=== PATIENT | female | born 1995 | race Hispanic/Latino ===

== ENCOUNTER 2019-03-09 05:17 | Inpatient (IN) | payer OTHER ==
[~2019-03-09] VITALS: Ht 160 cm; Wt 65.8 kg
[2019-03-09] VITALS (16 sets, daily range): BP systolic 66–91; BP diastolic 25–57
[2019-03-09] MEDS ORDERED: MAGNESIUM 2GM PREMIX 50ML 50 ML IV ONE (05:23)
[2019-03-09] MEDS ORDERED: NALOXONE HCL 0.4 MG/1 ML ML ONE (05:27)
[2019-03-09 05:30] LABS: ABG BASE EXCESS -16.7 mmol/L (-2.0-3.0); ABG HCO3 17.1 mmol/L (21.0-28.0); ABG PCO2 84 mmHg (32-45)
[2019-03-09 05:38] LABS: BASOPHILS % (AUTO) 0.4 % (0.0-5.0); EOSINOPHILS % (AUTO) 1.9 % (0.0-8.0); HEMATOCRIT 39.6 % (36-48); LYMPHOCYTES % (AUTO) 57.4 % (21.0-51.0); MEAN CORPUSCULAR HGB CONC 32.7 g/dL (32.0-36.0); MEAN CORPUSCULAR VOLUME 101.1 fL (79-99); MONOCYTES % (AUTO) 5.9 % (3.0-13.0); NEUTROPHILS % (AUTO) 34.4 % (40.0-77.0); NUCLEATED RED BLOOD CELLS 0.1 % (0.0-0.19); PLATELET COUNT (AUTO) 368 K/uL (130-400); RED BLOOD CELL COUNT(AUTO) 3.92 MIL/uL (4.00-5.50); RED CELL DISTRIBUTION WIDTH 13.9 % (11.0-15.5); WHITE BLOOD COUNT (AUTO) 7.1 K/uL (4.8-10.8)
[2019-03-09 05:39] LABS: CARBON DIOXIDE 22 mmol/L (21-32); CHLORIDE 104 mmol/L (101-111); CREATININE 1.5 mg/dL (0.5-1.5); GLOMERULAR FILTR. RATE CALC 45 mL/min (>60); GLUCOSE,RANDOM 309 mg/dL (70-105); POTASSIUM 5.2 mmol/L (3.5-5.1); SODIUM SERUM 145 mmol/L (136-145); UREA NITROGEN, BLOOD 18 mg/dL (7-18)
[2019-03-09] MEDS ORDERED: SODIUM BICARB 50MEQ 50ML VIAL ONE ×5 (05:42→23:13)
[2019-03-09 05:44] LABS: ALANINE AMINOTRANSFERASE 46 U/L (12-78); ALBUMIN 3.7 g/dL (3.5-5.0); ASPARTATE AMINOTRANSFERASE 43 U/L (10-37); BILIRUBIN,TOTAL 0.2 mg/dL (0.2-1.0); TOTAL PROTEIN, SERUM 7.1 g/dL (6.0-8.3)
[2019-03-09 05:52] LABS: ACETAMINOPHEN < 1 mcg/mL (10-30); SALICYLATE < 2.8 mg/dL (2.8-20.0)
[2019-03-09 05:53] LABS: ALCOHOL, BLOOD 234 mg/dL (0-10)
[2019-03-09 06:17] LABS: APPEARANCE,URINE Clear (CLEAR); BILIRUBIN,URINE Negative (NEGATIVE); COLOR,URINE Yellow (YELLOW); GLUCOSE, URINE (UA) Negative (NEGATIVE); KETONES,URINE Negative (NEGATIVE); LEUKOCYTE ESTERASE ,URINE Negative (NEGATIVE); NITRATE,URINE Negative (NEGATIVE); OCCULT BLOOD,URINE Negative (NEGATIVE); PROTEIN,URINE Negative (NEGATIVE); UROBILINOGEN,URINE 0.2 mg/dL (0.2-1.0)
[2019-03-09 06:19] LABS: ABG BASE EXCESS -18.9 mmol/L (-2.0-3.0); ABG HCO3 12.5 mmol/L (21.0-28.0); ABG OXYGEN SATURATION 98.2 % (95.0-99.0); ABG PCO2 54 mmHg (32-45)
[2019-03-09 06:27] LABS: HCG,QUAL RESULT NEGATIVE (NEGATIVE)
[2019-03-09 06:30] LABS: AMPHET/METH SCREEN,URINE NEGATIVE (NEGATIVE); BARBITURATE SCREEN, URINE NEGATIVE (NEGATIVE); BENZODIAZEPINES SCREEN,URINE POSITIVE (NEGATIVE); CANNABINOID SCREEN,URINE NEGATIVE (NEGATIVE); COCAINE SCREEN,URINE POSITIVE (NEGATIVE); OPIATE SCREEN,URINE NEGATIVE (NEGATIVE); PHENCYCLIDINE SCREEN,URINE NEGATIVE (NEGATIVE)
[2019-03-09 07:08] LABS: CREATININE 1.2 mg/dL (0.5-1.5)
[2019-03-09 07:24] LABS: ACETONE,BLOOD NEGATIVE (NEGATIVE)
[2019-03-09 07:39] LABS: OCCULT BLOOD,GASTRIC FLUID POSITIVE (NEGATIVE)
[2019-03-09 09:05] LABS: ABG HCO3 11.5 mmol/L (21.0-28.0); ABG OXYGEN SATURATION 99.8 % (95.0-99.0); ABG PCO2 24 mmHg (32-45)
[2019-03-09] MEDS: LACTATED RINGERS 1000ML 1,000 ML IV SCH ×4 (09:15→23:11)
[2019-03-09] MEDS ORDERED: ONDANSETRON HCL 4 MG/2 ML VIAL IV PRN (09:15)
[2019-03-09] MEDS ORDERED: ACETAMINOPHEN 325 MG TAB PO PRN ×2 (09:15)
[2019-03-09] MEDS ORDERED: HYDRALAZINE HCL 20 MG/ML VIAL IV PRN (09:15)
[2019-03-09] MEDS ORDERED: NOREPINEPHRINE BITARTRATE 1 MG/1 ML ML IV ONE ×4 (09:26→15:39)
[2019-03-09 09:46] LABS: CREATININE 1.1 mg/dL (0.5-1.5); POTASSIUM 3.9 mmol/L (3.5-5.1)
[2019-03-09] MEDS: FOLIC ACID IV SCH (10:00)
[2019-03-09] MEDS: M V I IV SCH (10:00)
[2019-03-09] MEDS: [UNRECOGNIZED DRUG - OTHER] IV SCH (10:00)
[2019-03-09] MEDS: THIAMINE HCL IV SCH (10:00)
[2019-03-09] MEDS ORDERED: LACTATED RINGERS 1000ML 1,000 ML IV ONE (10:22)
[2019-03-09] MEDS ORDERED: DOPAMINE 800MG/D5 250ML 250 ML IV ONE (10:25)
[2019-03-09] MEDS ORDERED: LEVETIRACETAM 500 MG in SODIUM CHLORIDE 0.9% 100 ML IV SCH (10:30)
[2019-03-09] MEDS ORDERED: LEVETIRACETAM 500 MG/5 ML SD VIAL IV ONE (11:33)
[2019-03-09] MEDS ORDERED: LACTATED RINGERS 1000ML 2,000 ML IV ONE (12:10)
[2019-03-09] MEDS ORDERED: MANNITOL 25% 50ML VIAL ONE (12:11)
[2019-03-09 12:51] LABS: INR > 7.00 (0.85-1.15); PROTHROMBIN TIME > 63.0 SEC (9.6-11.6)
[2019-03-09 12:52] LABS: PARTIAL THROMBOPLASTIN TIME 105.3 SEC (26.3-35.5)
[2019-03-09] MEDS: LEVETIRACETAM 1,000 MG in SODIUM CHLORIDE 0.9% 100 ML IV SCH (13:00)
[2019-03-09 13:48] LABS: INR > 7.00 (0.85-1.15); PARTIAL THROMBOPLASTIN TIME > 120.0 SEC (26.3-35.5); PROTHROMBIN TIME > 63.0 SEC (9.6-11.6)
[2019-03-09] MEDS ORDERED: ATROPINE SULFATE 0.1 MG/ML 10 ML SYG IVP ONE (14:55)
[2019-03-09] MEDS ORDERED: NALOXONE HCL 0.4 MG/1 ML ML IVP ONE (14:55)
[2019-03-09] MEDS ORDERED: EPINEPHRINE 0.1 MG/ML 10 ML SYG IVP ONE (14:55)
[2019-03-09] MEDS ORDERED: SODIUM BICARB 8.4% 50ML SYRINGE IVP ONE (14:55)
[2019-03-09] MEDS ORDERED: MAGNESIUM SULFATE 1 GM/2 ML VIAL IM ONE (14:55)
[2019-03-09] MEDS ORDERED: DOPAMINE HCL 400 MG/D5%-WATER 250 ML IV ONE (14:55)
[2019-03-09 17:06] LABS: BASOPHILS % (AUTO) 0.2 % (0.0-5.0); EOSINOPHILS % (AUTO) 0.1 % (0.0-8.0); LYMPHOCYTES % (AUTO) 18.7 % (21.0-51.0); MEAN CORPUSCULAR HEMOGLOBIN 32.6 pg (27.0-33.0); MEAN CORPUSCULAR HGB CONC 32.1 g/dL (32.0-36.0); MEAN CORPUSCULAR VOLUME 101.6 fL (79-99); MONOCYTES % (AUTO) 1.2 % (3.0-13.0); NEUTROPHILS % (AUTO) 79.8 % (40.0-77.0); NUCLEATED RED BLOOD CELLS 0.2 % (0.0-0.19); PLATELET COUNT (AUTO) 274 K/uL (130-400); RED BLOOD CELL COUNT(AUTO) 3.25 MIL/uL (4.00-5.50); RED CELL DISTRIBUTION WIDTH 13.8 % (11.0-15.5); WHITE BLOOD COUNT (AUTO) 12.7 K/uL (4.8-10.8)
[2019-03-09] MEDS: NOREPINEPHRINE 4MG/NS 250ML 250 ML IV SCH ×3 (18:12→23:10)
--- NOTE | 2019-03-09 18:30 | NUR ---
PT RECEIVED FROM ER, REPORT FROM STACY ACOSTA. PT IS POST CARDIAC ARREST X2, REFER TO FLOW SHEET. PER REPORT, PT WAS BROUGHT IN BY A FRIEND. AT THIS TIME, PT IS INTUBATED ETT 7.5, VENT SETTINGS ARE AC RATE 14/TV500/PEEP5/FIO2 80%. PT IS ON LEVOPHED AND DOPAMINE DRIP. F/C NOTED WITH CLEAR YELLOW URINE. ADMISSION INFORMATION OBTAINED FROM PT'S MOTHER. I INFORMED HER THAT IF CONSENT IS REQUIRED FOR ANY PROCEDURE, SHE OR PT'S FATHER ARE NEXT OF KIN. SHE VOICED UNDERSTANDING. PT IS NONRESPONSIVE, PUPILS ARE FIXED, NONREACTIVE, DOES NOT RESPOND TO PAIN AND NO GAG NOTED. POC DISCUSSED WITH FAMILY PRESENT. WILL CONT TO MONITOR CLOSELY. TELE SR 80s. NGT TO LEFT NARE NOTED.
[2019-03-09] MEDS: FAMOTIDINE/PF 20 MG/2 ML VIAL IV SCH (21:03)
--- NOTE | 2019-03-09 21:36 | NUR ---
Raphael WEEKSGRAPHICS EDITOR NOTIFIED OF PATIENT WITH BP 75/35 ON LEVOPHED AND DOPAMINE DRIPS, MINIMAL URINE OUTPUT. NEW ORDER FOR CXR AND ABG + ,AND ALBUMIN.
[2019-03-09] MEDS: DOPAMINE HCL 400 MG/D5%-WATER 250 ML IV PRN (21:39)
[2019-03-09] MEDS ORDERED: ALBUMIN (HUMAN) 5% 250 ML IV SCH (21:45)
[2019-03-09] MEDS ORDERED: MANNITOL 25% 50ML VIAL IV SCH (22:00)
[2019-03-09 22:27] LABS: ABG BASE EXCESS -12.1 mmol/L (-2.0-3.0); ABG HCO3 15.8 mmol/L (21.0-28.0); ABG PCO2 43 mmHg (32-45)
[2019-03-09 22:43] LABS: ABG BASE EXCESS -11.7 mmol/L (-2.0-3.0); ABG HCO3 15.9 mmol/L (21.0-28.0); ABG OXYGEN SATURATION 82.1 % (95.0-99.0); ABG PCO2 43 mmHg (32-45)
[2019-03-09] MEDS ORDERED: EPINEPHRINE 1 MG/ML AMPULE ONE (22:59)
[2019-03-09] MEDS ORDERED: DEXTROSE 5%-WATER 500 ML IV ONE (22:59)
[2019-03-09] MEDS ORDERED: SODIUM CHLORIDE 0.9% 250 ML IV ONE (23:00)
[2019-03-09] MEDS ORDERED: SODIUM BICARB 8.4% 50ML SYRINGE IVP SCH (23:00)
--- NOTE | 2019-03-09 23:08 | NUR ---
Raphael WEEKS NP NOTIFIED OF ABG+ RESULTS INCLUDING PH 7.19, PCO2 42, O2 52, BICARB 15.9 SAT 82 % LA 9.06 . VERY LITTLE URINE OUTPUT. HR 114, SBP 70-80. NEW ORDER RECEIVED AND READ BACK.
[2019-03-09] MEDS: SODIUM BICARB 8.4% 50ML SYRING 200 MEQ in DEXTROSE 5%-WATER 800 ML IV SCH (23:20)
[2019-03-09] MEDS: EPINEPHRINE 2 MG in SODIUM CHLORIDE 0.9% 250 ML IV PRN (23:20)
[2019-03-10] VITALS (21 sets, daily range): BP systolic 51–97; BP diastolic 20–64
--- NOTE | 2019-03-10 | NUR ---
Raphael WEEKS NP NOTIFIED OF PATIENT STATUS UPDAE, HR 160, O2 SAT 71, CXR RESULT, BP 63/31 , ALL IVS PATENT, MOTHER AT BEDSIDE, Addendum: 03/10/19 at 0116 by KELLY ADLER RN RN TEMP 103, COOL PACKS APPLIED.
--- NOTE | 2019-03-10 00:20 | NUR ---
Raphael HENNESSY,DRUG SAFETY DATA MANAGEMENT SPECIALIST NOTIFIED OF PATIENT STATUS AND ARRIVED AT BEDSIDE TO VIEW LABS, CHART , CXR AWARE OF VS HR 160, O2 SAT 71, BP 63/31 , ALL IVS PATENT. Raphael GARY SPOKE TO MOTHER AND DISCUSSED VERY POOR PROGNOSIS AND DNR STATUS. MOTHER RECEPTIVE TO INFORMATION AND IS WAITING FOR HER EX- TO ARRIVE FROM [place].
--- NOTE | 2019-03-10 00:30 | NUR ---
MOTHER REFUSED [employer] AT THIS TIME.
--- NOTE | 2019-03-10 01:12 | NUR ---
DAMON NIETO NP AT BEDSIDE AND PATIENT"S CONDITION DETERIORATING DISCUSSED WITH MOTHER AND HER EX AT BEDSIDE DECIDING ON DNR STATUS AND WILL DECIDE BASED ON INFORMATION GIVEN.
[2019-03-10] MEDS: DOPAMINE HCL 400 MG/D5%-WATER 250 ML IV PRN ×2 (01:42→05:50)
[2019-03-10] MEDS: NOREPINEPHRINE 4MG/NS 250ML 250 ML IV SCH ×4 (01:43→09:14)
[2019-03-10] MEDS: LEVETIRACETAM 1,000 MG in SODIUM CHLORIDE 0.9% 100 ML IV SCH (01:59)
[2019-03-10] MEDS ORDERED: EPINEPHRINE 1 MG/ML AMPULE ONE (03:26)
[2019-03-10] MEDS ORDERED: SODIUM CHLORIDE 0.9% 250 ML IV ONE (03:27)
[2019-03-10] MEDS: EPINEPHRINE 2 MG in SODIUM CHLORIDE 0.9% 250 ML IV PRN ×3 (03:31→08:34)
[2019-03-10] MEDS ORDERED: SODIUM BICARB 50MEQ 50ML VIAL ONE ×2 (03:33)
[2019-03-10] MEDS ORDERED: DEXTROSE 5%-WATER 1,000 ML IV ONE (03:34)
[2019-03-10] MEDS: SODIUM BICARB 8.4% 50ML SYRING 200 MEQ in DEXTROSE 5%-WATER 800 ML IV SCH ×2 (03:42→03:44)
[2019-03-10 03:49] LABS: B-TYPE NATRIURETIC PEPTIDE 413 pg/mL (0-100)
[2019-03-10 03:51] LABS: INR 2.62 (0.85-1.15); PARTIAL THROMBOPLASTIN TIME 45.9 SEC (26.3-35.5)
[2019-03-10 03:53] LABS: EOSINOPHILS % (AUTO) 0.2 % (0.0-8.0); HEMATOCRIT 28.8 % (36-48); LYMPHOCYTES % (AUTO) 43.9 % (21.0-51.0); MEAN CORPUSCULAR HEMOGLOBIN 31.9 pg (27.0-33.0); MEAN CORPUSCULAR HGB CONC 32.2 g/dL (32.0-36.0); MEAN CORPUSCULAR VOLUME 99.1 fL (79-99); MONOCYTES % (AUTO) 0.7 % (3.0-13.0); NEUTROPHILS % (AUTO) 55.2 % (40.0-77.0); NUCLEATED RED BLOOD CELLS 1.5 % (0.0-0.19); PLATELET COUNT (AUTO) 156 K/uL (130-400); RED BLOOD CELL COUNT(AUTO) 2.91 MIL/uL (4.00-5.50); RED CELL DISTRIBUTION WIDTH 13.3 % (11.0-15.5); WHITE BLOOD COUNT (AUTO) 1.8 K/uL (4.8-10.8)
[2019-03-10 03:59] LABS: ALBUMIN 1.5 g/dL (3.5-5.0); BILIRUBIN,TOTAL 1.4 mg/dL (0.2-1.0); MAGNESIUM 1.4 mg/dL (1.80-2.40); PHOSPHORUS 4.6 mg/dL (2.5-4.9); POTASSIUM 3.4 mmol/L (3.5-5.1); THYROID STIMULATING HORMONE 1.18 uIU/mL (0.36-3.74); TOTAL PROTEIN, SERUM 3.3 g/dL (6.0-8.3)
--- NOTE | 2019-03-10 04:55 | NUR ---
DAMON NITEO NP NOTIFIED OF FAMILY WISHES FOR DNR WITH DNR FORM SIGNED BY PARENTS. OK FOR DNR PER MD PER PIPE SMOKING MACHINE OPERATOR.AM LABS ALL REPORTED WITH NO NEW ORDERS REGARDING LAB RESULTS AT THIS TIME.PATIENT STATUS UPDATE GIVEN.
[2019-03-10 08:00] LABS: ABG BASE EXCESS 1.7 mmol/L (-2.0-3.0); ABG HCO3 31.5 mmol/L (21.0-28.0); ABG OXYGEN SATURATION 43.3 % (95.0-99.0); ABG PCO2 74 mmHg (32-45)
[2019-03-10] MEDS: FOLIC ACID IV SCH (09:00)
[2019-03-10] MEDS: [UNRECOGNIZED DRUG - OTHER] IV SCH (09:00)
[2019-03-10] MEDS: FAMOTIDINE/PF 20 MG/2 ML VIAL IV SCH (09:00)
[2019-03-10] MEDS: M V I IV SCH (09:00)
[2019-03-10] MEDS: THIAMINE HCL IV SCH (09:00)
--- NOTE | 2019-03-10 09:15 | NUR ---
Family at bedside all morning. Patient has no cough, gag, corneal reflex or pain response. Family aware of assessment, vitals and prognosis. Family wants DNR. All questions have been answered my nursing, Dr Brown, and Dr Don. Lj service called. Will continue to monitor and support.
--- NOTE | 2019-03-10 09:26 | NUR ---
Cardiac time of noted, Dr Don pronounced patient. Family at bedside and informed. Dr Brown notified.
--- NOTE | 2019-03-10 09:27 | NUR ---
Gem from [facility] in unit. Aware of cardiac time of . [facility] # [id number].
--- NOTE | 2019-03-10 09:32 | NUR ---
Dr Chung notified.
--- NOTE | 2019-03-10 09:35 | NUR ---
Family informed that vent and all drips are being turned off. RT in room to turn off vent.
--- NOTE | 2019-03-10 09:36 | NUR ---
Dr Mt young.
--- NOTE | 2019-03-10 09:47 | NUR ---
DC PLAN PATIENT CRITICAL DNR. Addendum: 03/10/19 at 1548 by JERMAN YANEZ RN CM Amended: Links added.
--- NOTE | 2019-03-10 09:48 | NUR ---
Dr Amor notified
--- NOTE | 2019-03-10 10:25 | NUR ---
Autopsy Inquest Placed a call to Bird Zelayanadia at [facility] director medical writing's office to inquire about an autopsy for the . He requested the first blood specimen and urine specimen from yesterday. He is going to Construction Analyst Joshua's office for an inquest request, explained this info to primary nurse, 's father, mother and 's . Mr Pang will call me back on how to proceed. Called lab to let them know about the specimen request, spoke with Jesika.
--- NOTE | 2019-03-10 10:56 | NUR ---
EMOTIONAL SUPPORT Sw notified by CMD of pt and impending . SW arrived and pt had already passed, parents and father of pt's 1yro daughter present at bedside. Sw provided emotional support. Family waiting for site controller to arrive. Sw called site controller several times, has keller machine operator page him and left message for him to come to pt's room. Media Technician arrived and prayed over body with family at bedside.
--- NOTE | 2019-03-10 11:08 | NUR ---
Autopsy Received a call from Bird from [facility] Surgeon/President's Office [phone], requesting to send the [place] [facility] [place] inquest ordered by Judge Lewis. He will fax the order to me at [phone], he wants the specimen sent with the body and all medical records as well. Informed the mother and father about the autopsy and father signed the autopsy consent. Family (dad) given Bird's phone number for follow up later today. Bird will send Jesús Avalos home to moss picker the , family informed. Primary nurse present and is aware of the above.
[2019-03-10] MEDS ORDERED: COMPOUND IV MISC 1 EACH IVSOLN MISC PRN (12:00)
== END 2019-03-10 09:26 | disposition expired | DRG 871 ==
LOC: EDBD 05:17 → EDH 05:17 → EDHIP 05:18 → 2CH 16:24
PROVIDERS: ADMIT Internal Medicine; ATTEND Internal Medicine
PROC: 30233K1 Transfusion of Nonautologous Frozen Plasma into Peripheral Vein, Percutaneous Approach (ICD-10-PCS; principal; 2019-03-09)
PROC: 5A1935Z Respiratory Ventilation, Less than 24 Consecutive Hours (ICD-10-PCS; 2019-03-09)
PROC: 0BH17EZ Insertion of Endotracheal Airway into Trachea, Via Natural or Artificial Opening (ICD-10-PCS; 2019-03-09)
PROC: 5A12012 Performance of Cardiac Output, Single, Manual (ICD-10-PCS; 2019-03-09)
DX: A41.9 Sepsis, unspecified organism (principal); J96.02 Acute respiratory failure with hypercapnia; J69.0 Pneumonitis due to inhalation of food and vomit; G93.41 Metabolic encephalopathy; G93.6 Cerebral edema; I60.9 Nontraumatic subarachnoid hemorrhage, unspecified; R65.21 Severe sepsis with septic shock; J96.01 Acute respiratory failure with hypoxia; E87.2 Acidosis; G93.1 Anoxic brain damage, not elsewhere classified; N13.6 Pyonephrosis; T42.4X1A Poisoning by benzodiazepines, accidental (unintentional), initial encounter; T40.5X1A Poisoning by cocaine, accidental (unintentional), initial encounter; Z66 Do not resuscitate; I46.9 Cardiac arrest, cause unspecified; F10.129 Alcohol abuse with intoxication, unspecified; H57.04 Mydriasis; R79.1 Abnormal coagulation profile; Y92.89 Other specified places as the place of occurrence of the external cause
CPT/HCPCS: 31500; 36415; 36600; 70450; 71045; 71250; 72125; 74176; 80048; 80053; 80305; 81003; 81025; 82009; 82140; 82271; 82435; 82550; 82803; 82947; 82948; 83605; 83690; 83735; 83880; 83930; 84100; 84132; 84295; 84443; 84480; 84484; 85018; 85025; 85610; 85730; 86850; 86900; 86901; 86927; 87040; 87071; 87205; 92950; 93005; 94002; 94003; 99291; 99292; G0378; G0480; G0481; J0171; J0461; J1265; J1953; J2150; J2310; J3411; J3475; J3490; J7030; J7060; J7070; J7120; P9012; P9017